=== PATIENT | female | born 1975 | race Two or more races ===

== ENCOUNTER 2021-02-22 19:08 | Inpatient (IN) | payer OTHER ==
[~2021-02-22] VITALS: Ht 160 cm; Wt 68.5 kg
--- NOTE | 2021-02-22 22:00 | NUR ---
PETROLEUM SAMPLER NOTE RECEIVED PATIENT DIRECT ADMIT FROM [facility] . ARRIVE VIA GURNEY. TRANSFERRED TO BED WITH NO INJURY. ON MECHANICAL VENT, RT AT BEDSIDE TO SET UP. SHILEY #6,AC 18, TV 550, FIO2 100% PEEP 5. RESPIRATIONS ARE EVEN AND UNLABORED. NO S/S SOB. NO S/S PAIN A THIS TIME. IN NO APPARENT DISTRESS. TELE MONITOR, PULSE OX AND AUTOMATIC BP CUFF APPLIED. JEAN-CLAUDE MONITOR READS SINUS TACHYCARDIA HR 110. IV ACCESS IN SAVITA MIDLINE RUNNING LEVO @0.26MCG. IV IN RIGHT HAND#24 WAS REMOVED D/T CATHETER IS OUT. GTUBE IS PRESENT, NO RESIDUAL, FLUSHED WITH NO RESISTANCE. WILL CATHETER DRAINING TO GRAVITY, URINE IS YELLOW. NO BELONGINGS WITH PATIENT. SKIN ASSESSMENT DONE, PHOTOS TAKEN AND PLACED IN CHART. BED IS LOW AND LOCKED, HOB ELEVATED IN SEMI FOWLERS, SIDE RIAL SUP X2, CALL LIGHT WITHIN REACH.
[2021-02-22 22:12] VITALS: BP 130/78
--- NOTE | 2021-02-22 22:23 | NUR ---
RECEIVED PT FROM [facility] STRAIGHT ADMIT. PT IS TRACH SHLY 6 ON [facility] VENT AC 18, 550, 100%, +5. SX'D MOD AMT OF THIN TINGED SECRETIONS. VENT ALARMS SET AND AUDIBLE. VENT PLUGGED INTO RED OUTLET. CONTINUE TO MONITOR. Addendum: 02/22/21 at 2225 by WILDA FERRERA RT Amended: Links added.
[2021-02-22 22:30] VITALS: BP 106/73
--- NOTE | 2021-02-22 22:34 | NUR ---
RN NOTE CALLED LOW PRESSURE BOILER OPERATOR DR. GONZALEZ FOR ADMITTING ORDERS.
[2021-02-22 23:00] VITALS: BP 105/67
[2021-02-22] MEDS ORDERED: MORPHINE IR GT (23:16)
[2021-02-22] MEDS ORDERED: METO25TA6 GT (23:16)
[2021-02-22] MEDS ORDERED: APIX2.5T GT (23:16)
[2021-02-22] MEDS ORDERED: SENN-261 GT (23:16)
[2021-02-22] MEDS ORDERED: MODAFINIL GT (23:16)
[2021-02-22] MEDS ORDERED: SODIUM CHLORIDE GT (23:16)
[2021-02-22] MEDS ORDERED: MULTIVITAMINS GT (23:16)
[2021-02-22] MEDS ORDERED: VANC1PLA9 IV (23:16)
[2021-02-22] MEDS ORDERED: ASCO120G2 MC (23:16)
[2021-02-22] MEDS ORDERED: OMEP20CA15 GT (23:16)
[2021-02-22] MEDS ORDERED: GABA600T12 GT (23:16)
[2021-02-22] MEDS ORDERED: CHLO473M3 PO (23:16)
[2021-02-22 23:23] VITALS: BP 112/65
[2021-02-22] MEDS ORDERED: ONDA-97 GT (23:24)
[2021-02-22] MEDS ORDERED: DULCOLAX PR (23:24)
[2021-02-22] MEDS ORDERED: ZINC57OI4 TP (23:24)
[2021-02-22] MEDS ORDERED: OXYC10TA49 GT (23:24)
[2021-02-22] MEDS ORDERED: ACET-73 GT (23:24)
[2021-02-22 23:30] VITALS: BP 115/66
--- NOTE | 2021-02-22 23:43 | NUR ---
FiO2 titrated to 50% RN notified. O2 sat 100%.
[2021-02-22 23:45] VITALS: BP 114/74
--- NOTE | 2021-02-22 23:45 | NUR ---
RN NOTE DR. GONZALEZ AT BEDSIDE.
[2021-02-23] VITALS (76 sets, daily range): BP systolic 63–120; BP diastolic 43–78
[2021-02-23] MEDS ORDERED: ONDANSETRON HCL/PF 4 MG/2 ML VIAL IVP PRN
[2021-02-23] MEDS ORDERED: MAGNESIUM HYDROXIDE 30 ML UDC PO PRN
[2021-02-23] MEDS ORDERED: MAG HYDROX/AL HYDROX/SIMETH 30 ML UDC PO PRN
[2021-02-23] MEDS ORDERED: Z GUARD REMEDY 2 OZ OINT TP PRN
[2021-02-23] MEDS ORDERED: ZOLPIDEM TARTRATE 5 MG TABLET PO PRN
[2021-02-23] MEDS ORDERED: ACETAMINOPHEN 325 MG TABLET PO PRN
[2021-02-23] MEDS ORDERED: NOREPINEPHRINE 4 MG/4 ML AMPUL IV ONE ×2 (00:23→00:57)
[2021-02-23] MEDS ORDERED: IV NS 0.9% 1,000 ML IV ONE (00:30)
[2021-02-23] MEDS ORDERED: BISACODYL SUPP (10 MG) 10 MG/SUPP.RECT SUPP.RECT RC PRN (00:30)
[2021-02-23] MEDS ORDERED: ONDANSETRON 4 MG TAB.RAPDIS GT PRN (00:30)
[2021-02-23] MEDS: NOREPINEPHRINE 32 MG in IV NS 0.9% 218 ML IV PRN ×2 (00:30→18:51)
[2021-02-23] MEDS ORDERED: oxyCODONE IR immediate release 5 MG GT SCH (01:00)
--- NOTE | 2021-02-23 01:05 | NUR ---
sputum sample collected RN notified.
--- NOTE | 2021-02-23 02:56 | NUR ---
RN NOTE CALLED [facility] TO OBTAIN A POLST / ADVANCE DIRECTIVE FOR PATIENT. PATIENT CAME IN WITH DNR WRIST BAND BUT NO POLST IN CHART. THEY STATED THEY WILL FAX TO [facility] ICU [phone]. ALSO CALLED [facility] TO OBTAIN PATIENTS GTUBE FEEDINING INFORMATION IT WAS NOT ON [employer]. PATIENT GETS GLUCERNA 1.2@65ML/HR X20 HOURS. AWAITING POLST TO PLACE IN CHART.
--- NOTE | 2021-02-23 04:39 | NUR ---
RN NOTE DR. GONZALEZ AWARE THAT PATIENT HAS POLST AND IS DNR. INFORMED DR GONZALEZ THE OXY IR 10MG IS A PRN Q4HR ON THE MED [employer], RECEIVED TELEPHONE ORDER TO CHANGE TO Q4HR PRN.
[2021-02-23 05:02] LABS: BASOPHILS # (AUTO) 0.1 K/uL (0.0-0.2); BASOPHILS % (AUTO) 0.8 % (0.0-2.0); EOSINOPHILS % (AUTO) 1.3 % (0.0-6.0); HEMATOCRIT 24 % (33-45); HEMOGLOBIN 7.5 g/dL (11.5-14.8); LYMPHOCYTES % (AUTO) 15.3 % (20.0-44.0); MEAN CORPUSCULAR HGB CONC 31 g/dl (31.0-36.0); MEAN CORPUSCULAR VOLUME 76 fL (82-100); MONOCYTES # (AUTO) 0.9 K/uL (0.1-1.30); MONOCYTES % (AUTO) 7.2 % (2.0-12.0); NEUTROPHILS % (AUTO) 75.4 % (43.0-81.0); PLATELET COUNT (AUTO) 244 K/uL (150-450); RED BLOOD CELL COUNT(AUTO) 3.19 MIL/uL (4.0-5.2); WHITE BLOOD COUNT (AUTO) 13.2 K/uL (4.3-11.0)
[2021-02-23 05:13] LABS: CALCIUM, SERUM 8.2 mg/dL (8.5-10.1); CREATININE 0.9 mg/dL (0.6-1.3); MAGNESIUM 2.4 mg/dL (1.8-2.4); PHOSPHORUS 4.6 mg/dL (2.5-4.9); POTASSIUM 3.2 mmol/L (3.5-5.1)
[2021-02-23] MEDS ORDERED: CEFEPIME 1 GM VIAL ONE (05:29)
[2021-02-23] MEDS: CEFEPIME 2 GM in IV D5W 100 ML IV SCH ×3 (06:10→20:06)
--- NOTE | 2021-02-23 07:02 | NUR ---
RN CLOSING NOTE PATIENT RESTING IN BED.REMAINS ON MECHANICAL VENT, AC 18, TV 550, FIO2 BOW 50% PEEP 5. NO RESP DISTRESS. SECRETIONS ARE PINK/ RED AND FROTHY. PATIENTS TELE MONITOR REMAINS TACHYCARDIC LOW 100S. SAVITA MIDLINE RUNNING LEVO @0.26MCG/KG/MIN. RIGHT HAND #22 RUNNING NS@75ML/HR. GTUBE IS CLAMPED, FNS CONS PENDING, MED RECON FEEDING SUGGEST GLUCERNA 1.2@40ML.HR. WILL CATHETER OUTPUT 350ML. BED IS LOW AND LOCKED, HOB ELEVATED IN SEMI FOWLERS, SIDE RIAL SUP X2, CALL LIGHT WITHIN REACH. WILL ENDORSE TO NEXT SHIFT.
--- NOTE | 2021-02-23 07:17 | NUR ---
WOUND CARE CONSULT: REVIEWED CHART, NURSING DOCUMENTATION AND PHOTOS WHICH INDICATE MULTIPLE WOUNDS PRESENT ON ADMISSION INCLUDING INTACT DEEP TISSUE INJURY TO SACRUM, BLACK NECROTIC TISSUE TO LEFT FINGERS, DISCOLORATION WITH SURGICAL SCAR TO RT FOOT AND DISCOLORATION TO LEFT GREAT TOE AND HEEL, ALL PRESENT ON ADMISSION. SURGICAL AND DPM CONSULTS TO BE CALLED TO DR PARRA AND DR THAPA THIS AM. RECOMMENDATIONS MADE FOR SKIN PROTECTION. DICUSSED WITH NURSING STAFF. FIRST STEP LOW AIRLOSS MATTRESS IS ON ORDER. MD IN AGREEMENT WITH PLAN OF CARE.
--- NOTE | 2021-02-23 07:20 | NUR ---
NURSE OPENING NOTE RECEIVE REPORT FROM OUT GOING NURSE. PATIENT IS ON MECHANICAL VENTILATOR WITH NO SIGN DISTRESS. PATIENT IS TACHYCARDIA LOW 100'S. WILL FOLLOW UP WITH AM LABS. BED ON LOWEST POSITION AND LOCK. HOB ELEVATED. SIDE RAIL UP X2. CALL LIGHT WITHIN REACH. WILL CONTINUE TO MONITOR
[2021-02-23] MEDS ORDERED: POTASSIUM CHLORIDE 20 MEQ TAB.PRT.SR PO ONE (07:30)
[2021-02-23] MEDS ORDERED: POTASSIUM CHLORIDE 20 MEQ POWDER PACKET GT ONE (08:00)
[2021-02-23] MEDS: ASCORBIC ACID 500 MG TABLET GT SCH ×2 (08:12→17:03)
[2021-02-23] MEDS: SENNOSIDES 8.6 MG TABLET GT SCH (08:12)
[2021-02-23] MEDS: MODAFINIL 100 MG TABLET GT SCH (08:12)
[2021-02-23] MEDS: GABAPENTIN 300 MG CAPSULE GT SCH ×3 (08:12→17:03)
[2021-02-23] MEDS: MULTIVITAMINS,THERAGRAN 1 UDTAB TABLET GT SCH (08:12)
[2021-02-23] MEDS: METOPROLOL TARTRATE 25 MG TABLET GT SCH ×2 (08:13→19:46)
[2021-02-23] MEDS: PANTOPRAZOLE 40 MG/PACK PACK GT SCH (08:13)
[2021-02-23] MEDS ORDERED: GLUCERNA 1.2 1,000 ML BOTTLE NG PRN (08:30)
[2021-02-23] MEDS ORDERED: GLUCERNA 1.2 1,000 ML BOTTLE GT PRN (08:30)
[2021-02-23] MEDS: ZINC OXIDE 56.7 GM TUBE TP SCH ×2 (08:59→20:18)
[2021-02-23] MEDS: SODIUM CHLORIDE 1000 MG TABLET GT SCH ×3 (08:59→17:04)
[2021-02-23] MEDS ORDERED: FIXODENT DENTURE ADHESIVE CREAM TUBE PO SCH (09:00)
[2021-02-23] MEDS: VANCOMYCIN 1 GM in IV D5W 250ml IV SCH (09:00)
--- NOTE | 2021-02-23 09:25 | NUR ---
NURSE NOTE MORPHINE HAS NOT BEEN ISSUE IN [facility]. PHARMACY WILL DELIVER.
--- NOTE | 2021-02-23 11:14 | NUR ---
NURSE NOTE PERFORM MORNING ASSESSMENT. TEMPERATURE IS 100 DEGREE. PROVIDE COOLING MEASURE AND WILL ADMINISTER TYLENOL. PATIENT HAD SMALL BOWEL MOVEMENT. PATIENT WAS CLEANED.
[2021-02-23] MEDS: MORPHINE SULFATE IR 15 MG TABLET GT SCH ×2 (11:22→20:17)
[2021-02-23] MEDS: ACETAMINOPHEN 650 MG/20.3 ML UDC GT PRN ×2 (11:23→21:45)
--- NOTE | 2021-02-23 11:32 | NUR ---
NURSE NOTE TITRATE LEVOPHED FOR 2.6MCG/KG/HR TO 2.0MCG/KG. BLOOD PRESSURE IS 92/65 HR103. WILL CONTINUE TO MONITOR.
--- NOTE | 2021-02-23 12:27 | NUR ---
NURSE NOTE PATIENT SEEN BY GUTTER INSTALLER. LEAVE BOTH FEET CLEAN AND DRY.
--- NOTE | 2021-02-23 14:14 | NUR ---
NURSE NOTE FIXODENT NOT GIVEN. PATIENT HAVE NO DENTURE
[2021-02-23] MEDS: GLUCERNA 1.2 1,000 ML BOTTLE GT PRN (15:38)
--- NOTE | 2021-02-23 17:50 | NUR ---
NURSE NOTE CALL PHARMACY TO MIX ANOTHER BAG OF LEVOPHED. PHARMACY WILL DELIVER TO UNIT.
--- NOTE | 2021-02-23 18:52 | NUR ---
NURSE CLOSING NOTE PATIENT MAINTAIN BASELINE CONDITION. TACHYCARDIA LOW 100'S. REMAIN ON LEVOPHED DRIP. CONFIRM POSITIVE DVT. HEMOPTYSIS REDUCED APPEAR WHILE TRACH SUCTIONING. TRACH SH6, AC18, TV550, FIO2 40%. PEEP 0. STARTED OF GLUCERNA PEG TUBE FEEDING AT 40ML THAT WAS CHANGED TO 65ML/HR. RESIDUAL 15ML. WOUND CONSULT WAS PRESENT. BILATERAL FOOT: NOTHING TO BE DONE PER PODIATRY. SURGICAL AND DPM CONSULT IN PLACE PER WOUND CARE NURSE. LOW AIR LOSS MATRES IN PLACE. VANCOMYCIN AND CEFEPINE WAS GIVEN. VANCO TROUGH 19. SAFETY MEASURE IN PLACE. BED IN LOWEST POSITION WITH 3 SIDE RAIL UP. HOB ELEVATED. CALL LIGHT WITHIN REACH. WILL CONTINUE TO MONITOR AND ENDORSE TO ON COMING NURSE.
--- NOTE | 2021-02-23 19:30 | NUR ---
ICU/TAXONOMIST RECIEVED REPORT FROM DAY SHIFT NURSE. SEE FLOWSHEET FOR ASSESSMENT, THERE ARE MANY SKIN ISSUES THAT ARE ADDRESSED ON THE FLOWSHEET, ALONG WITH INTERVENTIONS TO EACH. THERE IS NO MAINTENANCE IV'S HOWEVER THERE IS LEVO WHICH IS ADDRESSED ON THE IV SPREAD SHEET. PT WAS TURNED AND REPOSITIONED FOR COMFORT AND CARE. WILL CONTINUE TO MONITOR THIS PT. NO ACUTE DISTRESS SEEN AT THIS TIME. PT CURRENTLY HAS A LOW GRADE FEVER OF 100.0 AX, WILL CONTINUE TO MONITOR THIS.
--- NOTE | 2021-02-23 19:50 | NUR ---
ICU/RIGGING LOFT REPAIRER LOPRESSOR IS HELD DUE TO THE FACT THAT PT IS CURRENTLY ON LEVO DRIP FOR BP. WILL CONTINUE TO MONITOR THIS PT AND HER BP.
[2021-02-23] MEDS: CHLORHEXIDINE GLUCONATE 15 ML UDC MM SCH (20:07)
--- NOTE | 2021-02-23 20:18 | NUR ---
ICU/SATELLITE TECHNICIAN PT IS CURRENTLY ON LEVO AT 0.2MCG, 2100 DOSE OF MORPHINE NOT GIVEN DUE TO THE FACT THAT PT'S BP WILL GO LOWER. WILL CONTINUE TO MONITOR THIS PT AND HER BLOOD PRESSURE.
[2021-02-23] MEDS: CADEXOMER IODINE 40 GM TUBE TP SCH (21:31)
--- NOTE | 2021-02-23 22:03 | NUR ---
ICU/AEROPHYSICS ENGINEER PT HAS INCREASED TEMP. OF 100.0 AX. ALSO WITH INCREASED HEART RATE OF 120'S. TYLENOL WAS GIVEN VIA G/TUBE FOR THIS. WILL MONITOR THIS PT'S TEMP AND HEART RATE.
[2021-02-23] MEDS: oxyCODONE IR immediate release 5 MG GT PRN (23:58)
[2021-02-24] VITALS (90 sets, daily range): BP systolic 84–114; BP diastolic 56–79
--- NOTE | 2021-02-24 00:53 | NUR ---
ICU/TRANSMISSION SYSTEM OPERATOR PT APPEARED TO BE IN PAIN, WITH INCREASED HEART RATE TO 110'S, PT WAS GIVEN OXY IR VIA G/TUBE. THIS WAS USING FLACC SCALE RATED 10/10. WILL CONTINUE TO MONITOR THIS PT'S PAIN.
--- NOTE | 2021-02-24 02:30 | NUR ---
ICU/CORPORATE CLAIMS EXAMINER PT WAS GIVEN ORAL CARE, ALONG WITH AM CARE. PT TOLERATED THIS WELL. PT REMAINS ON CURRENT VENT SETTINGS WITH SATURATION AT 97-98%. PT WAS TURNED AND REPOSITIONED FOR COMFORT AND CARE. WILL CONTINUE TO MONITOR THIS PT. THERE IS NO ACUTE DISTRESS SEEN AT THIS TIME.
--- NOTE | 2021-02-24 04:00 | NUR ---
ICU/HRIS ANALYST SPUTUM WAS COLLECTED FOR [employer]. LAB HERE FOR MORNING LABS, THIS WAS GIVEN TO THEM.
[2021-02-24] MEDS: CEFEPIME 2 GM in IV D5W 100 ML IV SCH (04:03)
[2021-02-24] MEDS: GLUCERNA 1.2 1,000 ML BOTTLE GT PRN ×2 (04:31→13:35)
[2021-02-24] MEDS: oxyCODONE IR immediate release 5 MG GT PRN ×3 (05:02→15:27)
--- NOTE | 2021-02-24 05:21 | NUR ---
ICU/CELL PREPARER PT APPEARED TO BE IN PAIN, WITH INCREASED HEART RATE TO 110'S, PT WAS GIVEN OXY IR VIA G/TUBE. THIS WAS USING FLACC SCALE RATED 10/10. WILL CONTINUE TO MONITOR THIS PT'S PAIN.
[2021-02-24 05:30] LABS: BASOPHILS # (AUTO) 0.1 K/uL (0.0-0.2); BASOPHILS % (AUTO) 1.2 % (0.0-2.0); EOSINOPHILS % (AUTO) 4.4 % (0.0-6.0); HEMATOCRIT 24 % (33-45); HEMOGLOBIN 7.5 g/dL (11.5-14.8); LYMPHOCYTES % (AUTO) 18.6 % (20.0-44.0); MEAN CORPUSCULAR HGB CONC 31 g/dl (31.0-36.0); MEAN CORPUSCULAR VOLUME 78 fL (82-100); MONOCYTES # (AUTO) 0.8 K/uL (0.1-1.30); MONOCYTES % (AUTO) 7.8 % (2.0-12.0); NEUTROPHILS # (AUTO) 7.3 K/uL (1.8-8.9); PLATELET COUNT (AUTO) 222 K/uL (150-450); RED BLOOD CELL COUNT(AUTO) 3.12 MIL/uL (4.0-5.2); WHITE BLOOD COUNT (AUTO) 10.7 K/uL (4.3-11.0)
[2021-02-24 05:44] LABS: CALCIUM, SERUM 7.9 mg/dL (8.5-10.1); MAGNESIUM 2.3 mg/dL (1.8-2.4); PHOSPHORUS 4.2 mg/dL (2.5-4.9); POTASSIUM 3.7 mmol/L (3.5-5.1)
--- NOTE | 2021-02-24 07:30 | NUR ---
RN NOTES PT FOUND LYING SUPINE DISPLAYING NO S/S OF ACUTE DISTRESS, FLACC = 0 AND BILATERAL RISE AND FALL OF THE CHEST OBSERVED FROM TRACH [facility]. REPORTS INCLUDE ENCEPHALOPATHY, RN WILL MONITOR AND TREAT PAIN CLOSELY. L HAND SKIN DYSFUNCTION OBSERVED: CRACKED AND NECROTIC TISSUE. L ARM & L LEG EDEMATOUS, R ARM & R LEG NOT FOUND. NO RESIDUAL FOUND OF PEG. WILL CATH BELOW PATIENT DRAINING BY GRAVITY. VSS, RN WILL MONITOR AND TREAT THROUGHOUT SHIFT. SAFETY MEASURES IN PLACE, BED LOCKED AND IN LOWEST POSITION, SIDE RAILS UPX2, CALL LIGHT WITHIN REACH, BED ALARM ARMED.
[2021-02-24] MEDS: MODAFINIL 100 MG TABLET GT SCH (08:12)
[2021-02-24] MEDS: MULTIVITAMINS,THERAGRAN 1 UDTAB TABLET GT SCH (08:12)
[2021-02-24] MEDS: PANTOPRAZOLE 40 MG/PACK PACK GT SCH (08:12)
[2021-02-24] MEDS: CHLORHEXIDINE GLUCONATE 15 ML UDC MM SCH ×2 (08:12→20:24)
[2021-02-24] MEDS: ASCORBIC ACID 500 MG TABLET GT SCH ×2 (08:12→16:39)
[2021-02-24] MEDS: MORPHINE SULFATE IR 15 MG TABLET GT SCH ×2 (08:12→20:25)
[2021-02-24] MEDS: SODIUM CHLORIDE 1000 MG TABLET GT SCH ×3 (08:14→16:39)
[2021-02-24] MEDS: METOPROLOL TARTRATE 25 MG TABLET GT SCH ×2 (08:14→20:26)
[2021-02-24] MEDS: GABAPENTIN 300 MG CAPSULE GT SCH ×3 (08:14→16:39)
[2021-02-24] MEDS: VANCOMYCIN 1 GM in IV D5W 250ml IV SCH (08:14)
[2021-02-24] MEDS: SENNOSIDES 8.6 MG TABLET GT SCH (08:14)
[2021-02-24] MEDS: ZINC OXIDE 56.7 GM TUBE TP SCH ×2 (08:15→20:25)
[2021-02-24] MEDS: CADEXOMER IODINE 40 GM TUBE TP SCH (08:15)
[2021-02-24] MEDS: ACETAMINOPHEN 650 MG/20.3 ML UDC GT PRN (10:11)
[2021-02-24] MEDS: MEROPENEM 1 G in IV NS 0.9% 100 ML IV SCH ×2 (10:11→20:25)
--- NOTE | 2021-02-24 19:10 | NUR ---
RN NOTES PT FOUND LYING SUPINE DISPLAYING NO S/S OF ACUTE DISTRESS, FLACC = 0 AND BILATERAL RISE AND FALL OF THE CHEST OBSERVED FROM TRACH MECH VENT. ENCEPHALOPATHY AND APHASIA OBSERVED THROUGHOUT SHIFT. L HAND SKIN DYSFUNCTION OBSERVED: CRACKED AND NECROTIC TISSUE. EDEMA PERSISTS. NO RESIDUAL FOUND OF PEG. WILL CATH BELOW PATIENT DRAINING BY GRAVITY. VSS, SBAR AND REPORT GIVEN TO AIR ANALYSIS ENGINEERING TECHNICIAN RN. SAFETY MEASURES IN PLACE, BED LOCKED AND IN LOWEST POSITION, SIDE RAILS UPX2, CALL LIGHT WITHIN REACH, BED ALARM ARMED. PT ENDORSED IN STABLE CONDITION FOR COLE.
--- NOTE | 2021-02-24 19:10 | NUR ---
RECEIVED PT ON BED EYES OPEN, NON VERBAL, ON TRACH/VENT SETTING PER MD FIO2 40% SPO2 97-99% NO SIGN OF RESPIRATORY DISTRESS, TELE MONITOR READS SINIS TACHY 110'S, HAVE SAVITA MIDLINE PATENT AND FLUSHED DRESSING CLEAN DRY AND INTACT, HAVE GTUBE ON PLACE RESIDUAL 5ML WITH ONGOING GLUCERNA @ 65ML/HR TOLERATING WELL, HAVE WILL CATHETER DRAINING YELLOW URINE BED ON LOWEST POSITION AND LOCKED SIDE RAILS UP X2 WILL CONT TO MONITOR
--- NOTE | 2021-02-24 19:59 | NUR ---
RT NOTE PT RECEIVED TRACHED ON SHILEY 6 CUFFED. CUFF INFLATED. VENT PLUGGED TO RED OUTLET. ALARMS ON AND AUDIBLE. SUCTION DONE, TRACH SECURED AND PATENT. NO RESPIRATORY DISTRESS NOTED AT THIS TIME. WILL CONTINUE TO MONITOR CLOSELY. Addendum: 02/24/21 at 2013 by ASHA MACKAY RT Amended: Links added.
[2021-02-25] VITALS (91 sets, daily range): BP systolic 83–127; BP diastolic 50–75
[2021-02-25] MEDS: oxyCODONE IR immediate release 5 MG GT PRN ×4 (01:54→19:00)
[2021-02-25 04:44] LABS: BASOPHILS # (AUTO) 0.1 K/uL (0.0-0.2); BASOPHILS % (AUTO) 0.6 % (0.0-2.0); HEMATOCRIT 23 % (33-45); HEMOGLOBIN 7.2 g/dL (11.5-14.8); LYMPHOCYTES # (AUTO) 0.9 K/uL (0.8-4.8); MEAN CORPUSCULAR HGB CONC 31 g/dl (31.0-36.0); MEAN CORPUSCULAR VOLUME 77 fL (82-100); MONOCYTES # (AUTO) 0.7 K/uL (0.1-1.30); MONOCYTES % (AUTO) 6.1 % (2.0-12.0); NEUTROPHILS # (AUTO) 9.1 K/uL (1.8-8.9); NEUTROPHILS % (AUTO) 80.3 % (43.0-81.0); PLATELET COUNT (AUTO) 151 K/uL (150-450); RED BLOOD CELL COUNT(AUTO) 3.02 MIL/uL (4.0-5.2); WHITE BLOOD COUNT (AUTO) 11.4 K/uL (4.3-11.0)
[2021-02-25] MEDS ORDERED: NOREPINEPHRINE 8MG/250ML RTU 250 ML IV ONE (04:47)
[2021-02-25] MEDS: NOREPINEPHRINE 8 MG in IV NS 0.9% 242 ML IV PRN ×2 (04:50→23:07)
[2021-02-25 04:56] LABS: CALCIUM, SERUM 7.9 mg/dL (8.5-10.1); MAGNESIUM 2.4 mg/dL (1.8-2.4); PHOSPHORUS 4.3 mg/dL (2.5-4.9)
[2021-02-25] MEDS: GLUCERNA 1.2 1,000 ML BOTTLE GT PRN ×2 (05:01→23:39)
[2021-02-25] MEDS: MEROPENEM 1 G in IV NS 0.9% 100 ML IV SCH ×3 (05:01→20:25)
--- NOTE | 2021-02-25 07:13 | NUR ---
PT ON BED STILL ON TRACH/VENT SETTING PER MD FIO2 40% SPO2 98% NO SIGN OF RESPIRATORY DISTRESS, TELEMONITOR READS SINUS TACHY 110'S, PRN PAIN MEDICATION GIVEN, ON LEVOPHED 0.1 MCG/KG/MIN INFUSING VIA SAVITA ML, BED LOWEST POSITION AND LOCKED SIDE RAILS UP X2 ALL NEEDS ATTENDED WILL ENDORSED TO AM SHIFT NURSE
--- NOTE | 2021-02-25 07:30 | NUR ---
RN NOTES PT FOUND SUPINE DISPLAYING NO S/S OF DISTRESS, FLACC = 0 AND BILATERAL RISE AND FALL OF THE CHEST IS OBSERVED WITH TRACH MECH VENT. R UA MIDLINE IS PATIENT AND INTACT. PEG IS CLEAN AND PATIENT WITH < 5 ML RESIDUAL. WILL CATH IS BELOW PATIENT DRAINING BY GRAVITY. VSS, RN WILL MONITOR AND TREAT THROUGHOUT SHIFT. SAFETY MEASURES IN PLACE, BED LOCKED AND IN LOWEST POSITION, SIDE RAILS UPX2, CALL LIGHT WITHIN REACH, BED ALARM ARMED.
[2021-02-25] MEDS: ASCORBIC ACID 500 MG TABLET GT SCH ×2 (08:03→16:17)
[2021-02-25] MEDS: CHLORHEXIDINE GLUCONATE 15 ML UDC MM SCH ×2 (08:03→20:25)
[2021-02-25] MEDS: MULTIVITAMINS,THERAGRAN 1 UDTAB TABLET GT SCH (08:03)
[2021-02-25] MEDS: MODAFINIL 100 MG TABLET GT SCH (08:03)
[2021-02-25] MEDS: SENNOSIDES 8.6 MG TABLET GT SCH (08:03)
[2021-02-25] MEDS: GABAPENTIN 300 MG CAPSULE GT SCH ×3 (08:04→16:18)
[2021-02-25] MEDS: METOPROLOL TARTRATE 25 MG TABLET GT SCH ×2 (08:04→20:38)
[2021-02-25] MEDS: PANTOPRAZOLE 40 MG/PACK PACK GT SCH (08:04)
[2021-02-25] MEDS: MORPHINE SULFATE IR 15 MG TABLET GT SCH ×2 (08:05→20:37)
[2021-02-25] MEDS: ZINC OXIDE 56.7 GM TUBE TP SCH ×2 (08:07→21:26)
[2021-02-25] MEDS: SODIUM CHLORIDE 1000 MG TABLET GT SCH ×3 (08:07→16:18)
[2021-02-25] MEDS: CADEXOMER IODINE 40 GM TUBE TP SCH (08:07)
--- NOTE | 2021-02-25 11:31 | NUR ---
Spoke to GELY Travis regarding U/S Guided Thoracentesis that it will be done tomorrow (02/26/21). Pending INR result and consent not yet signed.
[2021-02-25] MEDS: ACETAMINOPHEN 650 MG/20.3 ML UDC GT PRN (16:31)
--- NOTE | 2021-02-25 19:15 | NUR ---
RN NOTES PT FOUND SEMIFOWLERS DISPLAYING NO S/S OF DISTRESS, FLACC = 0 AND BILATERAL RISE AND FALL OF THE CHEST IS OBSERVED WITH TRACH MECH VENT. R UA MIDLINE IS PATIENT AND INTACT. PEG IS CLEAN AND PATIENT WITH < 5 ML RESIDUAL. WILL CATH IS BELOW PATIENT DRAINING BY GRAVITY. WOUND CARE PERFORMED. PT OFFLOADED Q2H. VSS, SBAR AND REPORT GIVEN TO RAILWAY TRACK WORKER RN, ALL QUESTIONS ANSWERED. SAFETY MEASURES IN PLACE, BED LOCKED AND IN LOWEST POSITION, SIDE RAILS UPX2, CALL LIGHT WITHIN REAC, BED ALARM ARMED. PT ENDORSED IN STABLE CONDITION FOR COLE.
--- NOTE | 2021-02-25 19:30 | NUR ---
RN OPENING NOTES, PATIENT ON MECHANICAL VENTILATOR WITH TRACH IN PLACE, ASLEEP AT THIS TIME, AROUSES TO TOUCH STIMULI, WITH TRACH MECH PRATIBHA,T, SINUS TACHY ON TELE MONITOR WITH HR 110S AT THIS TIME, RIGHT MARIA LUZ MIDLINE IN PLACE, PATIENT AND INTACT, LEVOPHED RUNNING AT 0.1MCG/KG/MIN, PEG IN PLACE, NO RESIDUAL NOTED AT THIS TIME, GTF INFUSING ORDERED, PATIENT TOLERATED WELL, WILL CATH IN PLACE, DRAINING YELLOW URINE BY GRAVITY, DRY AND CLEAN AT THIS TIME, SAFETY MEASURES IN PLACE, BED LOCKED AND IN LOWEST POSITION, SIDE RAILS UPX2, CALL LIGHT WITHIN REACH, WILL CONTINUE TO MONITOR CLOSELY.
--- NOTE | 2021-02-25 19:56 | NUR ---
RT NOTE PT RECEIVED TRACHED ON MECHANICAL VENTILATION. CUFF INFLATED. SUCTION DONE, TRACH SECURED AND PATENT. VENT PLUGGED TO RED OUTLET. ALARMS ON AND AUDIBLE. NO RESPIRATORY DISTRESS NOTED AT THIS TIME. WILL MONITOR T/O SHIFT. Addendum: 02/25/21 at 1957 by ASHA MACKAY RT Amended: Links added.
[2021-02-26] VITALS (80 sets, daily range): BP systolic 79–115; BP diastolic 49–74
[2021-02-26 04:41] LABS: BASOPHILS # (AUTO) 0.1 K/uL (0.0-0.2); BASOPHILS % (AUTO) 0.4 % (0.0-2.0); EOSINOPHILS % (AUTO) 2.9 % (0.0-6.0); HEMATOCRIT 26 % (33-45); LYMPHOCYTES # (AUTO) 1.8 K/uL (0.8-4.8); LYMPHOCYTES % (AUTO) 11.8 % (20.0-44.0); MEAN CORPUSCULAR HGB CONC 31 g/dl (31.0-36.0); MEAN CORPUSCULAR VOLUME 78 fL (82-100); MONOCYTES # (AUTO) 0.9 K/uL (0.1-1.30); MONOCYTES % (AUTO) 5.7 % (2.0-12.0); NEUTROPHILS # (AUTO) 12.3 K/uL (1.8-8.9); NEUTROPHILS % (AUTO) 79.2 % (43.0-81.0); PLATELET COUNT (AUTO) 151 K/uL (150-450); RED BLOOD CELL COUNT(AUTO) 3.33 MIL/uL (4.0-5.2); WHITE BLOOD COUNT (AUTO) 15.6 K/uL (4.3-11.0)
[2021-02-26] MEDS: MEROPENEM 1 G in IV NS 0.9% 100 ML IV SCH ×3 (04:49→21:44)
[2021-02-26 04:52] LABS: CALCIUM, SERUM 8.1 mg/dL (8.5-10.1); MAGNESIUM 2.4 mg/dL (1.8-2.4); PHOSPHORUS 3.7 mg/dL (2.5-4.9); POTASSIUM 4.5 mmol/L (3.5-5.1)
[2021-02-26] MEDS: oxyCODONE IR immediate release 5 MG GT PRN ×3 (05:01→08:24)
--- NOTE | 2021-02-26 07:15 | NUR ---
RN CLOSING NOTES, PATIENT ON MECHANICAL VENTILATOR WITH TRACH IN PLACE, OPEN EYES SPONTANEOUSLY, SINUS TACHY ON TELE MONITOR WITH HR 100-110S THROUGHOUT THE NIGHT, RIGHT MARIA LUZ MIDLINE IN PLACE, PATIENT AND INTACT, LEVOPHED RUNNING AT 0.2MCG/KG/MIN, TO MAINTAIN THE BLOOD PRESSURE, PEG IN PLACE, NO RESIDUAL NOTED AT THIS TIME, GTF INFUSING ORDERED, PATIENT TOLERATED WELL, WILL CATH IN PLACE, DRAINING YELLOW URINE BY GRAVITY, DRY AND CLEAN AT THIS TIME, WOUND TREATMENT PROVIDED, R/O TB ISOLATION OBSERVED , RESULTS STILL PENDING, SAFETY MEASURES IN PLACE, BED LOCKED AND IN LOWEST POSITION, SIDE RAILS UPX2, CALL LIGHT WITHIN REACH, ENDORSED TO GIORGI CLEMONS FOR CONTINUATION OF CARE.
[2021-02-26] MEDS: NOREPINEPHRINE 8 MG in IV NS 0.9% 242 ML IV PRN ×2 (07:44→21:02)
--- NOTE | 2021-02-26 08:00 | NUR ---
RECEIVED PATIENT ON MECHANICAL VENTILATOR / TRACH IN PLACE, ASLEEP EASY TO AROUSE, TACHY SINUS RYTHM NOTED / ON TELE MONITOR WITH HR 118-128 S AT THIS TIME, RIGHT MARIA LUZ MIDLINE INTACT PATENT, LEVOPHED RUNNING AT 0.1MCG/KG/MIN, PEG IN PLACE, G- TUBE IN PLACE FLUSHING EASY, NO RESIDUAL NOTED , WILL CATH IN PLACE- DRAINING YELLOW URINE BY GRAVITY NORMAL NO FOUL ODOR NOTED, PT REPOSITIONED HOB SEMI FOWLERS BRIEF DRY AND CLEAN AT THIS TIME, SAFETY MEASURES IN PLACE, BED LOCKED AND IN LOWEST POSITION, SIDE RAILS UPX2, CALL LIGHT WITHIN REACH, WILL CONTINUE TO MONITOR CLOSELY.
[2021-02-26] MEDS: PANTOPRAZOLE 40 MG/PACK PACK GT SCH (08:04)
[2021-02-26] MEDS: SODIUM CHLORIDE 1000 MG TABLET GT SCH ×3 (08:06→17:00)
[2021-02-26] MEDS: MULTIVITAMINS,THERAGRAN 1 UDTAB TABLET GT SCH (08:08)
[2021-02-26] MEDS: SENNOSIDES 8.6 MG TABLET GT SCH (08:09)
[2021-02-26] MEDS: GABAPENTIN 300 MG CAPSULE GT SCH ×3 (08:09→17:49)
[2021-02-26] MEDS: MORPHINE SULFATE IR 15 MG TABLET GT SCH ×2 (08:09→21:45)
[2021-02-26] MEDS: METOPROLOL TARTRATE 25 MG TABLET GT SCH ×2 (08:10→21:00)
[2021-02-26] MEDS: MODAFINIL 100 MG TABLET GT SCH (09:44)
[2021-02-26] MEDS: ASCORBIC ACID 500 MG TABLET GT SCH ×2 (09:45→17:49)
[2021-02-26] MEDS: CHLORHEXIDINE GLUCONATE 15 ML UDC MM SCH ×2 (09:48→21:44)
[2021-02-26] MEDS: CADEXOMER IODINE 40 GM TUBE TP SCH (09:49)
[2021-02-26] MEDS: ZINC OXIDE 56.7 GM TUBE TP SCH ×2 (09:49→21:45)
--- NOTE | 2021-02-26 12:54 | NUR ---
AFB / SPUTUM CULTURES COLLECTED ON 02/25/2021 RESULTS STILL PENDING AT THIS TIME, WILL F/U WITH MD KWAME REQUESTING RESULTS AT THIS TIME. RIGHT ARM NOTED WITH TWITCHING AND SPASMS WHICH INFLUENCE THE HEART MONITOR READING AND CAUSE ARTIFACTS NOTED HAPPEING EVERY HOUR AT THIS TIME - ONLY IN RIGHT ARM UNCONTROLLABLE TWITCHING AND MUSCLE SPASMS.
--- NOTE | 2021-02-26 15:00 | NUR ---
PATIENTS B/P STEADILY DROPPING LOW 80/58 RANGE INCREASED LEVOPHED TO 0.2 MCG/ML WILL MONITOR CLOSELY FOR B/P TO RISE BETWEEN 90-100 IS THE GOAL, ALL NEEDS MET AND IV IN PLACE PATENT FLOWING, TRACH IN PLACE INTACT SUCTIONED, HOB ELEVATED FOR COMFORT, G-TUBE IN PLACE PATENT AND FLOWING WELL, F/C FLOWING WITH GRAVITY YELLOW CLEAR URINE NOTED NO FOUL ODOR AT THIS TIME, WILL MONITOR FOR ANY SIGNIFICANT CHANGES. CALL LIGHT IN REACH
--- NOTE | 2021-02-26 16:07 | NUR ---
PATIENTS AFB CULTURE IS PENDING, AWAITING RESULTS, AWARE MD NEEDS TO SEE THE RESULT SOON IT IS POSTED, CONTINUE TO MONITOR FOR RESULT, STATUS STILL PENDING AT THIS TIME.
--- NOTE | 2021-02-26 16:08 | NUR ---
PATIENT ONE BM, BUTTOCKS CLEANSED, SERENE CARE PROVIDED F/C CARE PROVIDED, REPOSITIONED, FULL LINEN CHANGE, CONTINUE TO MONITOR, IV PATENT INTACT FLUSHING EASY, G-TUBE PATENT INTACT FLUSHING EASILY, TRACH CARE PROVIDED SUCTIONED, BED WHEELS LOCKED, BED IN LOW POSITION , CALL LIGHT IN REACH, PILLOWS SUPPORTING BI-LATERAL HEALS, AND BI-LATERAL ELBOWS.
--- NOTE | 2021-02-26 16:15 | NUR ---
PATIENT B/P MONITORED CLOSELY NO SIGNIFICANT RISE TO NORMAL RANGE OF B/P NOTED THEREFOR LEVOPHEN INCREASED TO 0.4 MCG/ML IS AT 71/56 AT THIS TIME WITH A PULSE OF 112, RR 18 AND OXYGEN LEVEL AT 98%, TEMP 97.8 AXILLARY RIGHT ARM, WILL MONITOR - GOAL TO BRING B/P UP TO 90s AT THIS TIME.
--- NOTE | 2021-02-26 16:51 | NUR ---
AT 1630 GOAL IS OBTAINED AT B/P 91/57, RR 18 , OXYGEN IS AT 100% ON MECHANICAL VENT, TEMP 97.7 AXILLARY RIGHT UNDER ARM, PULSE AT 112, WILL CONTINUE TO MONITOR FOR ANY CHANGES, IV PATENT RIGHT UPPER ARM INTACT, CALL LIGHT IN REACH, FAMILY HERE TO VISIT OUTSIDE OF ROOM LOOKING AT PATIENT THROUGH WINDOW SAYING PRAYERS. ENCOURAGED TO THINK POSITIVE AND PRAY BUT NOT GIVEN ANY FALSE HOPE - AWARE PATIENT HAS SEPSIS AND CANCER, BIOPSY OF THORENCENTISIS RESULT IS PEDING FOR TB, ALL SAFETY MEASURES IN PLACE, CONTINUE TO MONITOR AT THIS TIME.
--- NOTE | 2021-02-26 19:14 | NUR ---
thorencentisis completed, 1,560 ml drawn specimen taken to lab for result, result is in pending status at this time, iv intact, g-tube intact no residual noted patent flushing well, tolerating levophen at 0.4MCG/ML and maintaing b/p range of 88-98 / 56-68 at this time, per MD orders will continue this amount unless otherwise advised, preparation supervisor aware and approved as we are meeting goal of the b/p range at this level of dose and will monitor closely, relayed info to oncoming shift awaiting pending results of AFB specimen to rule out TB or not, bed low to floor, wheels locked, call light in place, lights dim to promote relaxation and rest at this time, family visited and father.
--- NOTE | 2021-02-26 19:35 | NUR ---
RN NOTE PT RECEIVED IN BED. PT IS TRACH/VENT TOLERATING VENT SETTINGS WELL. SETTINGS AT S#6, AC:18, TV:550, FIO2:40%. PT IS OBTUNDED, NON-VERBAL. ST ON MONITOR. WILL CATH NOTED. GLUCERNA 1.2 RUNNING AT 65 ML/HR. TOLERATING SETTINGS WELL WITH NO RESIDUAL NOTED. IV ACCESS NOTED ON RIGHT UPPER ARM MIDLINE. LINE FLUSHED, PATENT, AND INTACT WITH NO S/S OF INFILTRATION. ALL SAFETY MEASURES IMPLEMENTED. BED ALARM ON. BED LOCKED AND IN LOWEST POSITION. SIDE RAILS UP. WILL CONTINUE TO MONITOR AND ASSESS FOR ANY CHANGES THROUGHOUT THE SHIFT.
[2021-02-26] MEDS: ACETAMINOPHEN 650 MG/20.3 ML UDC GT PRN (23:45)
--- NOTE | 2021-02-26 23:46 | NUR ---
RN NOTE PT HAS TEMPERATURE OF 101.2. TYLENOL ADMINISTYERED VIA G-TUBE AND COOLING MEASURES PROVIDED. WILL CONTINUE TO MONITOR AND ASSESS PT.
[2021-02-27] VITALS (77 sets, daily range): BP systolic 79–120; BP diastolic 51–92
[2021-02-27] MEDS: NOREPINEPHRINE 8 MG in IV NS 0.9% 242 ML IV PRN ×3 (00:32→09:24)
[2021-02-27 04:32] LABS: BASOPHILS # (AUTO) 0.1 K/uL (0.0-0.2); BASOPHILS % (AUTO) 0.8 % (0.0-2.0); EOSINOPHILS % (AUTO) 0.6 % (0.0-6.0); HEMATOCRIT 26 % (33-45); HEMOGLOBIN 7.7 g/dL (11.5-14.8); LYMPHOCYTES # (AUTO) 2.1 K/uL (0.8-4.8); LYMPHOCYTES % (AUTO) 12.9 % (20.0-44.0); MEAN CORPUSCULAR HGB CONC 30 g/dl (31.0-36.0); MEAN CORPUSCULAR VOLUME 78 fL (82-100); MONOCYTES % (AUTO) 6.1 % (2.0-12.0); NEUTROPHILS # (AUTO) 13.1 K/uL (1.8-8.9); NEUTROPHILS % (AUTO) 79.6 % (43.0-81.0); PLATELET COUNT (AUTO) 172 K/uL (150-450); RED BLOOD CELL COUNT(AUTO) 3.34 MIL/uL (4.0-5.2); WHITE BLOOD COUNT (AUTO) 16.5 K/uL (4.3-11.0)
[2021-02-27 04:33] LABS: CREATININE 1.1 mg/dL (0.6-1.3); MAGNESIUM 2.6 mg/dL (1.8-2.4); POTASSIUM 4.6 mmol/L (3.5-5.1)
[2021-02-27] MEDS ORDERED: NOREPINEPHRINE 8MG/250ML RTU 250 ML IV ONE (04:38)
[2021-02-27] MEDS: MEROPENEM 1 G in IV NS 0.9% 100 ML IV SCH ×3 (05:25→21:30)
--- NOTE | 2021-02-27 06:57 | NUR ---
RN NOTE NO CHANGES IN PT CONDITION DURING SHIFT. PT IS TRACH/VENT TOLERATING VENT SETTINGS WELL. SETTINGS AT S#6, AC:18, TV:550, FIO2:40%. PT IS OBTUNDED, NON-VERBAL. ST ON MONITOR. GLUCERNA 1.2 RUNNING AT 65 ML/HR. TOLERATING SETTINGS WELL.. IV ACCESS NOTED ON RIGHT UPPER ARM MIDLINE. LINE FLUSHED, PATENT, AND INTACT WITH NO S/S OF INFILTRATION. LEVO RUNNING AT 0.4. ALL DUE MEDS GIVEN ORDERED. PT KEPT CLEAN AND COMFORTABLE. ALL SAFETY MEASURES IMPLEMENTED. BED ALARM ON. BED LOCKED AND IN LOWEST POSITION. SIDE RAILS UP. WILL ENDORSE TO MORNING SHIFT RN FOR COLE.
--- NOTE | 2021-02-27 07:15 | NUR ---
FLEET COORDINATOR OPENING NOTE RECEIVED REPORT FROM PM NURSE.PATIENT ON MECHANICAL VENTILATOR / TRACH IN PLACE.SATURATING 100%. SINUS TACH ON MONITOR WITH HR 112. RIGHT MARIA LUZ MIDLINE INTACT PATENT, LEVOPHED RUNNING AT 0.4MCG/KG/MIN, G- TUBE IN PLACE NO RESIDUAL NOTED , WILL CATH IN PLACE- DRAINING YELLOW URINE BY GRAVITY NORMAL. SAFETY MEASURES IN PLACE, BED LOCKED AND IN LOWEST POSITION, SIDE RAILS UPX2, CALL LIGHT WITHIN REACH, BED ALARM IS ON. WILL CONTINUE TO MONITOR CLOSELY
[2021-02-27] MEDS: MULTIVITAMINS,THERAGRAN 1 UDTAB TABLET GT SCH (08:44)
[2021-02-27] MEDS: ASCORBIC ACID 500 MG TABLET GT SCH ×2 (08:44→16:45)
[2021-02-27] MEDS: GABAPENTIN 300 MG CAPSULE GT SCH ×3 (08:44→16:45)
[2021-02-27] MEDS: MORPHINE SULFATE IR 15 MG TABLET GT SCH ×2 (08:44→21:29)
[2021-02-27] MEDS: PANTOPRAZOLE 40 MG/PACK PACK GT SCH (08:44)
[2021-02-27] MEDS: CHLORHEXIDINE GLUCONATE 15 ML UDC MM SCH ×2 (08:44→21:29)
[2021-02-27] MEDS: SENNOSIDES 8.6 MG TABLET GT SCH (08:44)
[2021-02-27] MEDS: MODAFINIL 100 MG TABLET GT SCH (08:45)
[2021-02-27] MEDS: METOPROLOL TARTRATE 25 MG TABLET GT SCH ×2 (08:45→21:29)
[2021-02-27] MEDS: SODIUM CHLORIDE 1000 MG TABLET GT SCH ×3 (08:46→16:45)
[2021-02-27] MEDS: HYDROCORTISONE SOD SUCCINATE 100 MG/2 ML VIAL IV SCH ×3 (08:48→21:29)
[2021-02-27] MEDS ORDERED: ENOXAPARIN SODIUM 60 MG/0.6 ML DISP.SYRIN SQ SCH (09:00)
[2021-02-27] MEDS: ZINC OXIDE 56.7 GM TUBE TP SCH ×2 (09:19→22:23)
[2021-02-27] MEDS: CADEXOMER IODINE 40 GM TUBE TP SCH (09:20)
--- NOTE | 2021-02-27 11:44 | NUR ---
PATIENT NOTED WITH ON AND OFF TWICHING MOVEMENT OF THE FACE AND R ARM. MADE AWARE.CONSULTED GOT NEW ORDER FOR EEG.TEMP 102.8 IN AM NOTIFIED ID AND .NEW ORDER FOR CULTURE.WILL CONTINUE TO MONITOR.
--- NOTE | 2021-02-27 11:50 | NUR ---
RT Sputum collected, lab called for pickle processor. Addendum: 02/27/21 at 1353 by BEATRICE LAYNE RT Amended: Links added.
[2021-02-27] MEDS: NOREPINEPHRINE 32 MG in IV NS 0.9% 218 ML IV PRN (14:40)
[2021-02-27] MEDS: GLUCERNA 1.2 1,000 ML BOTTLE GT PRN (16:01)
[2021-02-27] MEDS: ACETAMINOPHEN 650 MG/20.3 ML UDC GT PRN (16:47)
[2021-02-27 19:37] LABS: BILIRUBIN,URINE NEGATIVE (NEGATIVE); COLOR,URINE YELLOW (YELLOW); LEUKOCYTE ESTERASE ,URINE NEGATIVE (NEGATIVE); NITRITE, URINE NEGATIVE (NEGATIVE); PROTEIN,URINE 100 mg/dl (NEGATIVE); UGLUCOSE NEGATIVE (NEGATIVE); UROBILINOGEN,URINE 0.2 EU/dL (0.2)
[2021-02-27 19:50] LABS: BACTERIA,URINE Moderate /HPF (None Seen); RBC,URINE 0-2 /HPF (0-2); SQUAMOUS EPITHELIAL CELL,UR Rare /HPF (None Seen); URINE AMORPHOUS URATE Many /HPF (None Seen); WBC,URINE 0-2 /HPF (0-3)
--- NOTE | 2021-02-27 20:05 | NUR ---
REPORT GIVEN TO PM NURSE FOR COLE.PATIENT WITH TEMP 100.3.ON LEVO.SAFETY AND ASPIRATION MEASURES IN PLACE.
--- NOTE | 2021-02-27 20:10 | NUR ---
RT Notes Pt received trached on [facility] vent on charted settings. Airway patent and secured. Suctioned small amount of pink frothy secretions. Alarms set and audible. Ambubag at bedside. Vent plugged into red outlet. Will cont to monitor closely. Addendum: 02/27/21 at 2326 by ELMER RICARDO RT Amended: Links added.
[2021-02-28] VITALS (98 sets, daily range): BP systolic 74–140; BP diastolic 35–102
--- NOTE | 2021-02-28 00:01 | NUR ---
RN NOTE REPORT RECEIVED FROM VICTOR HUGO HONG, PATIENT IN BED, OBTUNDED, IN NO S/SX OF ACUTE DISTRESS AT THIS TIME. SATURATION AT 99% ON TRACH SHILEY#6 CONNECTED TO MECHANICAL VENT WITH SETTINGS PRESCRIBED: AC 18, TV 550, FIO2 30%, PEEP 4; ST ON THE MONITOR, HR IS 160, TEMP 102.7 DEG, COOLING BLANKET IN PLACE. NOTED IV SAVITA MIDLINE, PATENT AND FLUSHING WELL, NO S/S OF INFECTION WITH LEVOPHED INFUSING AT 0.2 MCG/KG/MIN. NOTED GTUBE INTACT POSITIVE PLACEMENT NOTED, NO RESIDUAL, WITH TUBE FEEDING OF GLUCERNA 1.2 AT 65 ML/HR. WILL CATHETER CONNECTED TO URINE BAG IN PLACE, DRAINING TO A CLEAR, YELLOW OUTPUT. SAFETY MEASURES IMPLEMENTED. PATIENT BED ALARM IS ON. HEAD OF BED ELEVATED. BED IS LOCKED, IN LOWEST POSITION AND SIDE RAILS UP. WILL CONTINUE TO MONITOR AND REASSESS FOR ANY CHANGES. Addendum: 03/01/21 at 0010 by YAZMIN HAN RN WRONG TIMED DOCUMENTATION. CORRECT TIME 02/28/21 8430
[2021-02-28] MEDS ORDERED: IV NS 0.9% 250 ML IV PRN (03:30)
[2021-02-28 05:24] LABS: CALCIUM, SERUM 7.9 mg/dL (8.5-10.1); CREATININE 0.9 mg/dL (0.6-1.3); POTASSIUM 4.7 mmol/L (3.5-5.1)
[2021-02-28] MEDS: HYDROCORTISONE SOD SUCCINATE 100 MG/2 ML VIAL IV SCH ×3 (05:30→20:13)
[2021-02-28] MEDS: MEROPENEM 1 G in IV NS 0.9% 100 ML IV SCH (05:30)
[2021-02-28] MEDS: ACETAMINOPHEN 650 MG/20.3 ML UDC GT PRN ×3 (06:09→21:35)
--- NOTE | 2021-02-28 08:00 | NUR ---
RN NOTES RECEIVED PATIENT ON TRACHEA/VENT DEPENDENT ON FO02-30%, T-100.6F WITH COOLING MEASURE, ST-124. PATIENT EYES IS OBTUNDED, RUNNING Levophed 0.3 mcg/kg/hr. TOTAL CARE AM CARE DONE, HAS LARGE BM, WILL HAS POOR OUTPUT, ABDOMEN DISTENDED, PATIENT HAS POOR CIRCULATION OF BILATERAL LOWER EXTREMITIES, COOL TO TOUCH. AND LEFT PHALANGES NECROTIC NO CIRCULATION. GT FEEDING INTACT NO RESIDUAL TOLERATING GLUCERNA1.2 65 ML/HR. DUE MEDICATION ADMINISTERED VIA GR, FLASH 200ML OF WATER. KEEP HOB ELEVATED FOR ASPIRATION PRECAUTION. PATIENT ISOLATION OF TB, NEED AFB SPUTUM. RT AWARE OF. ASSIST TURN AND REPOSTION Q 2 HR. WILL FOLLOW UP .
[2021-02-28] MEDS: METOPROLOL TARTRATE 25 MG TABLET GT SCH ×2 (09:00→21:05)
[2021-02-28] MEDS: CHLORHEXIDINE GLUCONATE 15 ML UDC MM SCH ×2 (09:21→20:13)
[2021-02-28] MEDS: MULTIVITAMINS,THERAGRAN 1 UDTAB TABLET GT SCH (09:21)
[2021-02-28] MEDS: SODIUM CHLORIDE 1000 MG TABLET GT SCH ×3 (09:21→17:26)
[2021-02-28] MEDS: PANTOPRAZOLE 40 MG/PACK PACK GT SCH (09:21)
[2021-02-28] MEDS: GABAPENTIN 300 MG CAPSULE GT SCH ×3 (09:21→17:24)
[2021-02-28] MEDS: SENNOSIDES 8.6 MG TABLET GT SCH (09:21)
[2021-02-28] MEDS: ASCORBIC ACID 500 MG TABLET GT SCH ×2 (09:21→17:26)
[2021-02-28] MEDS: MODAFINIL 100 MG TABLET GT SCH (09:21)
[2021-02-28] MEDS: CADEXOMER IODINE 40 GM TUBE TP SCH (10:20)
[2021-02-28] MEDS: MORPHINE SULFATE IR 15 MG TABLET GT SCH ×2 (10:20→20:13)
[2021-02-28] MEDS: ZINC OXIDE 56.7 GM TUBE TP SCH ×2 (10:21→21:05)
[2021-02-28] MEDS: APIXABAN 5 MG TABLET PO SCH ×2 (10:54→17:25)
[2021-02-28] MEDS: NOREPINEPHRINE 32 MG in IV NS 0.9% 218 ML IV PRN (11:14)
--- NOTE | 2021-02-28 14:00 | NUR ---
RN NOTES STARTED LEVAQUIN INFUSING @66.6ML, DUE MEDICATION ADMINISTERED. PATIENT DNR. WILL FOLLOW UP.
[2021-02-28] MEDS: LEVOFLOXACIN 500 MG /D5W 100ML 500 MG in PREMIX 1 EA IV SCH (14:13)
[2021-02-28] MEDS: GLUCERNA 1.2 1,000 ML BOTTLE GT PRN (15:17)
--- NOTE | 2021-02-28 15:33 | NUR ---
rn notes T101.8 F administered Tylenol 650 mg via ngt prn as prescribed, also patient has cooling measure. will follow up.
--- NOTE | 2021-02-28 18:00 | NUR ---
rn notes AFB sputum taken via RT, called lab to pickling operator.
--- NOTE | 2021-02-28 18:30 | NUR ---
rn notes pm care done, suction, mouth care, due medication administered. T-102F patient on cooling measure. assist turn and repostion q 2 hr. running Levophed 0.2 mcg/kg/hr, and tko on right ua intact. endorsed oncoming nurse follow plan of care.
--- NOTE | 2021-02-28 19:00 | NUR ---
RN NOTE REPORT RECEIVED FROM VICTOR HUGO HONG, PATIENT IN BED, OBTUNDED, IN NO S/SX OF ACUTE DISTRESS AT THIS TIME. SATURATION AT 99% ON TRACH SHILEY#6 CONNECTED TO MECHANICAL VENT WITH SETTINGS PRESCRIBED: AC 18, TV 550, FIO2 30%, PEEP 4; ST ON THE MONITOR, HR IS 160, TEMP 102.7 DEG, COOLING BLANKET IN PLACE. NOTED IV SAVITA MIDLINE, PATENT AND FLUSHING WELL, NO S/S OF INFECTION WITH LEVOPHED INFUSING AT 0.2 MCG/KG/MIN. NOTED GTUBE INTACT POSITIVE PLACEMENT NOTED, NO RESIDUAL, WITH TUBE FEEDING OF GLUCERNA 1.2 AT 65 ML/HR. WILL CATHETER CONNECTED TO URINE BAG IN PLACE, DRAINING TO A CLEAR, YELLOW OUTPUT. SAFETY MEASURES IMPLEMENTED. PATIENT BED ALARM IS ON. HEAD OF BED ELEVATED. BED IS LOCKED, IN LOWEST POSITION AND SIDE RAILS UP. WILL CONTINUE TO MONITOR AND REASSESS FOR ANY CHANGES. Addendum: 03/01/21 at 0725 by YAZMIN HAN RN PEEP 0
[2021-03-01] VITALS (72 sets, daily range): BP systolic 47–162; BP diastolic 24–82
--- NOTE | 2021-03-01 03:52 | NUR ---
RT spo2 unable to obtain. multiple attempts made to try to obtain [facility], aware.
--- NOTE | 2021-03-01 04:30 | NUR ---
RN NOTE STOOL COLLECTED FOR FECAL OCCULT BLOOD, SENT TO LAB
--- NOTE | 2021-03-01 04:43 | NUR ---
RN NOTE PATIENT VOMITED X 1, DR ESTRELLA WAS NOTIFIED, ORDER WAS RECEIVED FOR REGLAN 10 MG IV Q8 PRN. SALES ENGINEER ACCOUNT MANAGER AWARE
[2021-03-01] MEDS ORDERED: METOCLOPRAMIDE HCL 10 MG/2 ML VIAL IV PRN (05:30)
[2021-03-01] MEDS: HYDROCORTISONE SOD SUCCINATE 100 MG/2 ML VIAL IV SCH ×2 (05:31→12:55)
[2021-03-01] MEDS: ACETAMINOPHEN 650 MG/20.3 ML UDC GT PRN ×2 (05:33→10:08)
[2021-03-01 07:38] LABS: BASOPHILS % (AUTO) 0.2 % (0.0-2.0); HEMATOCRIT 30 % (33-45); HEMOGLOBIN 8.8 g/dL (11.5-14.8); LYMPHOCYTES # (AUTO) 1.7 K/uL (0.8-4.8); LYMPHOCYTES % (AUTO) 11.2 % (20.0-44.0); MEAN CORPUSCULAR HGB CONC 29 g/dl (31.0-36.0); MEAN CORPUSCULAR VOLUME 79 fL (82-100); MONOCYTES # (AUTO) 0.9 K/uL (0.1-1.30); MONOCYTES % (AUTO) 5.6 % (2.0-12.0); NEUTROPHILS # (AUTO) 12.8 K/uL (1.8-8.9); PLATELET COUNT (AUTO) 184 K/uL (150-450); RED BLOOD CELL COUNT(AUTO) 3.76 MIL/uL (4.0-5.2); WHITE BLOOD COUNT (AUTO) 15.4 K/uL (4.3-11.0)
[2021-03-01 07:46] LABS: OCCULT BLOOD STOOL NEGATIVE (NEGATIVE)
--- NOTE | 2021-03-01 08:00 | NUR ---
RN NOTES RECEIVED PATIENT STILL T-101.1F PATIENT ON COOLING MEASURE, BP-92/35, P-151, INFUSING LEVOPHED 0.2 MCG/KG/HR, SEEN PATIENT VIA HOSPITALIST, AND ACCORDING ON HOSPITALIST TITLE ASSISTANT WILL FOLLOW UP BECAUSE OF ELEVATED HEART RATE.PATIENT HAS ISCHEMIC BILATERAL CHANGE LOWER EXTREMITIES, AND LEFT HAND FOLLOWING VIA WOUND MD Plan IS Continue with decubitus precautions Recommend bed cradle if available. Do not cover feet with heavy bedding. Continue to monitor demarcation of necrosis. Patient is a poor candidate for revascularization procedure. Cyanosis/necrosis most likely secondary to vasopressors. DUE MEDICATION ADMINISTER VIA GT, RESIDUAL CHECKED 0 ML, KEEP HOB ELEVATED. RUNNING GLUCERNA 1.2 @65 ML/HR. ASSIST TURN AND REPOSTION Q 2 HR. PATIENT ON LEVOPHED 0.2 MCG/KG/HR. HELD METOPROLOL 25MG PO .WILL DRAINING POOR DARK YELLOW URINE. WILL FOLLOW UP
[2021-03-01 08:08] LABS: CALCIUM, SERUM 8.4 mg/dL (8.5-10.1); CREATININE 1.2 mg/dL (0.6-1.3); POTASSIUM 5.8 mmol/L (3.5-5.1)
--- NOTE | 2021-03-01 10:05 | NUR ---
RN NOTES ADMINISTERED TYLENOL 650MG.ML VIA GT. T-101.2F.
[2021-03-01] MEDS: SENNOSIDES 8.6 MG TABLET GT SCH (10:07)
[2021-03-01] MEDS: CHLORHEXIDINE GLUCONATE 15 ML UDC MM SCH (10:08)
[2021-03-01] MEDS: MULTIVITAMINS,THERAGRAN 1 UDTAB TABLET GT SCH (10:09)
[2021-03-01] MEDS: PANTOPRAZOLE 40 MG/PACK PACK GT SCH (10:09)
[2021-03-01] MEDS: GABAPENTIN 300 MG CAPSULE GT SCH ×2 (10:09→12:55)
[2021-03-01] MEDS: SODIUM CHLORIDE 1000 MG TABLET GT SCH ×2 (10:09→12:55)
[2021-03-01] MEDS: MORPHINE SULFATE IR 15 MG TABLET GT SCH (10:09)
[2021-03-01] MEDS: MODAFINIL 100 MG TABLET GT SCH (10:09)
[2021-03-01] MEDS: ASCORBIC ACID 500 MG TABLET GT SCH (10:10)
[2021-03-01] MEDS: APIXABAN 5 MG TABLET PO SCH (10:11)
[2021-03-01] MEDS: ZINC OXIDE 56.7 GM TUBE TP SCH (10:12)
[2021-03-01] MEDS: CADEXOMER IODINE 40 GM TUBE TP SCH (10:12)
--- NOTE | 2021-03-01 12:01 | NUR ---
rn notes called hospitalist for elevated kcl 5.8, and get TO order Kayexalate 30gx1,order taken and carried out.
[2021-03-01] MEDS ORDERED: SODIUM POLYSTYRENE SULFONATE 15 G/60 ML BOTTLE PO ONE (12:30)
[2021-03-01] MEDS: NOREPINEPHRINE 32 MG in IV NS 0.9% 218 ML IV PRN (12:52)
--- NOTE | 2021-03-01 13:48 | NUR ---
rn notes patient hr turns svt, p-150, r-40, bp drop again 98/63, patient get agonal breathing.
[2021-03-01] MEDS: LEVOFLOXACIN 500 MG /D5W 100ML 500 MG in PREMIX 1 EA IV SCH (13:57)
[2021-03-01] MEDS: oxyCODONE IR immediate release 5 MG GT PRN (14:14)
--- NOTE | 2021-03-01 14:14 | NUR ---
rn notes patient RR-41, HR-150 administered oxy-ir 10mg via GT, stop feeding, bp 115/24, RT therapist with the patient,
--- NOTE | 2021-03-01 14:50 | NUR ---
rn notes patient has wide qrs sudden hr drop 48, bp 69/28.
--- NOTE | 2021-03-01 14:55 | NUR ---
PATIENT NOTED WITH HR 30'S ON MONITOR. PATIENT CHECKED AT BEDSIDE. PATIENT ON PEA. NO PALPABLE PULSES. NO HEART TONE AUSCULTATED. PUPILS FIXED AND DILATED. NO SPONTANEOUS BREATHING OVER THE VENT. NO RESPONSE TO BOTH VERBAL AND PAIN STIMULI. PATIENT DNR. PRONOUNCED.
--- NOTE | 2021-03-01 14:55 | NUR ---
rn notes patient pronounced at this time via Yunior CHERRY RN, and elena Kirkland. patient has no audible heart tones, no BP, no RR. Notified hospitalis Dr Loaiza, warehouse representative Ximena HONG, admitting, and family name Crescencio Raygoza. Post mortem care done. Labeled no belonging, ID tags applied. called [facility] personnel name Came. case# [id number]. Patient family next to the bed. Per do not have mortuary yet. Patients body will transfer to the [facility].
[2021-03-01] MEDS ORDERED: LINEZOLID RTU BAG 600 MG in PREMIX 1 EA IV SCH (16:00)
[2021-03-01] MEDS ORDERED: MEROPENEM 1 G in IV NS 0.9% 100 ML IV SCH (16:00)
--- NOTE | 2021-03-01 16:52 | NUR ---
RN NOTES CALLED HOSPITAL SECURITY PERSONNEL AT THIS TIME TO TRANSFER PATIENTS BODY TO THE [facility] [place]
== END 2021-03-01 14:55 | DRG 130 ==
LOC: ICU 21:51
PROVIDERS: ADMIT Family Medicine; ATTEND Internal Medicine
PROC: 5A1955Z Respiratory Ventilation, Greater than 96 Consecutive Hours (ICD-10-PCS; principal; 2021-02-22)
PROC: 0W9B3ZZ Drainage of Left Pleural Cavity, Percutaneous Approach (ICD-10-PCS; 2021-02-26)
DX: J95.851 Ventilator associated pneumonia (principal); R65.21 Severe sepsis with septic shock; J69.0 Pneumonitis due to inhalation of food and vomit; I33.0 Acute and subacute infective endocarditis; A41.9 Sepsis, unspecified organism; G93.41 Metabolic encephalopathy; J96.21 Acute and chronic respiratory failure with hypoxia; E43 Unspecified severe protein-calorie malnutrition; I21.A1 Myocardial infarction type 2; E27.40 Unspecified adrenocortical insufficiency; C79.70 Secondary malignant neoplasm of unspecified adrenal gland; D63.8 Anemia in other chronic diseases classified elsewhere; E11.52 Type 2 diabetes mellitus with diabetic peripheral angiopathy with gangrene; D68.59 Other primary thrombophilia; I50.22 Chronic systolic (congestive) heart failure; I11.0 Hypertensive heart disease with heart failure; N39.0 Urinary tract infection, site not specified; Z86.711 Personal history of pulmonary embolism; Z95.828 Presence of other vascular implants and grafts; Z85.41 Personal history of malignant neoplasm of cervix uteri; Z86.718 Personal history of other venous thrombosis and embolism; Z68.1 Body mass index [BMI] 19.9 or less, adult; R04.2 Hemoptysis; Y95 Nosocomial condition; R13.10 Dysphagia, unspecified; E11.42 Type 2 diabetes mellitus with diabetic polyneuropathy; I69.351 Hemiplegia and hemiparesis following cerebral infarction affecting right dominant side; Z86.2 Personal history of diseases of the blood and blood-forming organs and certain disorders involving the immune mechanism; Z93.1 Gastrostomy status; Z85.42 Personal history of malignant neoplasm of other parts of uterus; Z90.710 Acquired absence of both cervix and uterus; D64.9 Anemia, unspecified; D69.6 Thrombocytopenia, unspecified; Z93.0 Tracheostomy status; I25.2 Old myocardial infarction; I82.401 Acute embolism and thrombosis of unspecified deep veins of right lower extremity; Z79.01 Long term (current) use of anticoagulants; Z79.899 Other long term (current) drug therapy; K29.70 Gastritis, unspecified, without bleeding; C79.89 Secondary malignant neoplasm of other specified sites; J90 Pleural effusion, not elsewhere classified; N17.9 Acute kidney failure, unspecified; Z99.11 Dependence on respirator [ventilator] status; Z74.09 Other reduced mobility; Y84.9 Medical procedure, unspecified as the cause of abnormal reaction of the patient, or of later complication, without mention of misadventure at the time of the procedure; Y82.8 Other medical devices associated with adverse incidents; Y92.9 Unspecified place or not applicable
CPT/HCPCS: 31720; 36415; 71045-TC; 74018; 76604-TC; 80048-TC; 80061-TC; 80202-TC; 81001; 82272-TC; 82533; 83605-TC; 83735-TC; 84100-TC; 84155-TC; 85025-TC; 85610-TC; 86480; 86803; 87040-TC; 87070-TC; 87075-TC; 87081-TC; 87086-TC; 87102-TC; 87116; 87186-TC; 87206; 87806; 89051-TC; 93926-TC; 93970-TC; 94002-TC; 94003-TC; 94640-TC; 94760-TC; 94799-TC; 95819-TC; A4216; A7526; G0378; J0692; J1720; J1956; J2020; J2185; J2405; J2765; J3370; J7030; J7040; J7050; J7060